=== PATIENT | male | born 1960 | race Caucasian/White ===

== ENCOUNTER 2021-08-13 05:38 | Emergency (ER) | payer MEDICAID ==
[2021-08-13 05:38] VITALS: TEMP 97.7
[2021-08-13 06:05] LABS: BASO % 0.8 % (0.0-2.0); EOS # 0.1 K/mm3 (0.0-0.7); EOS % 1.7 % (0.0-4.0); GRAN # 1.3 K/mm3 (1.4-6.5); GRAN % 37.2 % (42.2-75.2); HEMATOCRIT 39.3 % (42.0-52.0); HEMOGLOBIN 13.2 g/dl (13.5-18.0); LYMPH # 1.5 K/mm3 (1.2-3.4); LYMPH % 41.5 % (20.0-51.0); MEAN CELL VOLUME 91 fl (80.0-100.0); MEAN CORPUSCULAR HEMOGLOBIN 31 pg (27-31); MEAN CORPUSCULAR HGB CONC 34 g/dl (33.0-37.0); MEAN PLATELET VOLUME 12.2 fl (7.4-10.4); MONO # 0.7 K/mm3 (0.1-0.6); MONO % 18.5 % (1.7-9.3); PLATELET COUNT 87 K/mm3 (130-400); REDCELL DISTRIBUTION WIDTH-CV 14.8 % (11.5-14.5)
[2021-08-13 06:12] LABS: ALBUMIN 3.8 gm/dL (3.5-5.0); BILIRUBIN,TOTAL 0.9 mg/dL (0.2-1.2); C-REACTIVE PROTEIN 0.19 mg/dL (0.00-0.50); CALCIUM 8.6 mg/dL (8.4-10.2); CREATININE, serum 0.63 mg/dL (0.72-1.25); MAGNESIUM 1.6 mg/dL (1.6-2.6); TOTAL PROTEIN 7.7 gm/dL (6.2-8.1)
[2021-08-13 06:18] LABS: TROPONIN-I 0.01 ng/mL (0.00-0.033)
[2021-08-13 07:00] LABS: COLLECTION METHOD CLEAN CATCH
[2021-08-13 07:06] LABS: PH 7 (5-8); SQUAMOUS EPITHELIAL None Seen /hpf (0-10); URINE APPEARANCE Clear (CLEAR/HAZY); URINE BACTERIA None Seen /hpf (NONE SEEN); URINE BILIRUBIN Negative (NEGATIVE); URINE BLOOD Negative (NEGATIVE); URINE COLOR Yellow (YELLOW); URINE GLUCOSE Negative (NEGATIVE); URINE KETONE Negative (NEGATIVE); URINE LEUKOCYTE ESTERASE Negative (NEGATIVE); URINE NITRATE Negative (NEGATIVE); URINE PROTEIN(semi-quant) Negative (NEGATIVE); URINE RBC None Seen /hpf (0-2); URINE UROBILINOGEN >=4.0 (NEGATIVE)
[2021-08-13 09:23] VITALS: BP 142/85; PULSE 64
== END 2021-08-13 10:04 | disposition home or self-care (01) ==
LOC: COL.ER 05:38
PROVIDERS: Emergency Medicine
DX: R10.11 Right upper quadrant pain (principal); Z90.49 Acquired absence of other specified parts of digestive tract
CPT/HCPCS: J7120; Q9967

== ENCOUNTER 2021-08-26 19:50 | Emergency (ER) | payer MEDICAID ==
[~2021-08-26] VITALS: Ht 170.2 cm; Wt 72.7 kg
[2021-08-26 19:51] VITALS: TEMP 97.7
[2021-08-26 20:53] LABS: BASO # 0.1 K/mm3 (0.0-0.2); BASO % 1.9 % (0.0-2.0); EOS # 0.1 K/mm3 (0.0-0.7); EOS % 1.9 % (0.0-4.0); GRAN # 1.7 K/mm3 (1.4-6.5); GRAN % 45.5 % (42.2-75.2); HEMATOCRIT 39.6 % (42.0-52.0); HEMOGLOBIN 13.1 g/dl (13.5-18.0); LYMPH # 1.4 K/mm3 (1.2-3.4); LYMPH % 37.5 % (20.0-51.0); MEAN CELL VOLUME 91 fl (80.0-100.0); MEAN CORPUSCULAR HEMOGLOBIN 30 pg (27-31); MEAN CORPUSCULAR HGB CONC 33 g/dl (33.0-37.0); MEAN PLATELET VOLUME 12.5 fl (7.4-10.4); MONO # 0.5 K/mm3 (0.1-0.6); MONO % 12.9 % (1.7-9.3); PLATELET COUNT 72 K/mm3 (130-400); RED BLOOD COUNT 4.37 M/mm3 (4.20-5.60); REDCELL DISTRIBUTION WIDTH-CV 14.6 % (11.5-14.5)
[2021-08-26 21:06] LABS: INR 1.2 (0.8-3.0); PROTHROMBIN TIME 12.9 SECONDS (9.7-12.8)
[2021-08-26 21:12] LABS: ALBUMIN 3.8 gm/dL (3.5-5.0); BILIRUBIN,TOTAL 0.9 mg/dL (0.2-1.2); CALCIUM 8.8 mg/dL (8.4-10.2); CREATININE, serum 0.69 mg/dL (0.72-1.25); POTASSIUM 3.5 mmol/L (3.5-4.5); TOTAL PROTEIN 7.8 gm/dL (6.2-8.1)
[2021-08-26 22:30] VITALS: BP 107/71; PULSE 62
== END 2021-08-26 23:15 | disposition left against medical advice (07) ==
LOC: COL.ER 19:50
PROVIDERS: Physician Assistant
DX: S09.90XA Unspecified injury of head, initial encounter (principal); F10.129 Alcohol abuse with intoxication, unspecified; M25.512 Pain in left shoulder; Z98.890 Other specified postprocedural states; Y90.8 Blood alcohol level of 240 mg/100 ml or more; Y04.8XXA Assault by other bodily force, initial encounter
CPT/HCPCS: J7030

== ENCOUNTER 2021-09-12 16:30 | Inpatient (IN) | payer MEDICAID ==
[~2021-09-12] VITALS: Ht 175.3 cm; Wt 72.6 kg
[2021-09-12 17:50] LABS: HEMOGLOBIN 13.9 g/dl (13.5-18.0); MEAN CELL VOLUME 89 fl (80.0-100.0); MEAN CORPUSCULAR HEMOGLOBIN 30 pg (27-31); MEAN CORPUSCULAR HGB CONC 33 g/dl (33.0-37.0); PLATELET COUNT 94 K/mm3 (130-400); RED BLOOD COUNT 4.71 M/mm3 (4.20-5.60); REDCELL DISTRIBUTION WIDTH-CV 15.5 % (11.5-14.5)
[2021-09-12] MEDS ORDERED: MULTI-VITAMIN W1 TA1 PO (18:04)
[2021-09-12] MEDS ORDERED: FLOMAX 0.40.4 MG/CAP PO (18:04)
[2021-09-12 18:05] LABS: ALANINE AMINOTRANSFERASE 232 U/L (0-55); ALBUMIN 3.8 gm/dL (3.5-5.0); ALCOHOL(ethanol),MEDICAL 134 mg/dL (0-10); ALKALINE PHOSPHATASE 216 U/L (40-150); ANION GAP 14 mmol/L (7-16); AST,SGOT 432 U/L (5-34); BILIRUBIN,TOTAL 1.2 mg/dL (0.2-1.2); BLOOD UREA NITROGEN 7 mg/dL (8-26); CALCIUM 8.7 mg/dL (8.4-10.2); CARBON DIOXIDE 23 mmol/L (22-29); CHLORIDE 102 mmol/L (98-107); CREATININE, serum 0.63 mg/dL (0.72-1.25); GLUCOSE 71 mg/dL (70-99); POTASSIUM 3.8 mmol/L (3.5-4.5); SODIUM 139 mmol/L (136-145); TOTAL PROTEIN 8.5 gm/dL (6.2-8.1)
[2021-09-12] MEDS ORDERED: CRESTOR40 MG PO (18:06)
[2021-09-12] MEDS ORDERED: NEURONTIN300 MG/CAP PO (18:07)
[2021-09-12] MEDS ORDERED: ZOLOFT 25MG25 MG PO (18:07)
[2021-09-12] MEDS ORDERED: CYMBALTA 30MG30 MG PO (18:08)
[2021-09-12] MEDS ORDERED: NORVASC 5MG5 MG/TAB PO (18:08)
[2021-09-12] MEDS ORDERED: FOLIC ACID 11 MG/TA1 PO (18:09)
[2021-09-12] MEDS ORDERED: EUTHYROX50 MCG PO (18:10)
[2021-09-12 18:12] LABS: TROPONIN-I < 0.010 ng/mL (0.00-0.033)
[2021-09-12 18:41] LABS: BAND 11 % (0-10); EOSINOPHIL 3 % (0-4); LYMPHOCYTE 27 % (20.0-51.0); NEUTROPHILS 43 % (42.0-75.2); PLATELET ESTIMATE DECREASED (NORMAL)
[2021-09-12 19:09] LABS: TRICYCLIC ANTIDEPRESS URINE NEGATIVE
[2021-09-12 20:30] LABS: INR 1.1 (0.8-3.0); PROTHROMBIN TIME 12.4 SECONDS (9.7-12.8)
[2021-09-12 20:32] LABS: PARTIAL THROMBOPLASTIN TIME 43.6 SECONDS (26.0-37.0)
[2021-09-12 20:48] VITALS: BP 123/72; PULSE 61
[2021-09-12 23:16] LABS: COLLECTION METHOD CLEAN CATCH
[2021-09-12 23:23] LABS: PH 8 (5-8); SQUAMOUS EPITHELIAL 0-2 /hpf (0-10); URINE APPEARANCE Clear (CLEAR/HAZY); URINE BACTERIA None Seen /hpf (NONE SEEN); URINE BILIRUBIN Negative (NEGATIVE); URINE BLOOD Negative (NEGATIVE); URINE COLOR Yellow (YELLOW); URINE GLUCOSE Negative (NEGATIVE); URINE KETONE Negative (NEGATIVE); URINE LEUKOCYTE ESTERASE Negative (NEGATIVE); URINE NITRATE Negative (NEGATIVE); URINE PROTEIN(semi-quant) Negative (NEGATIVE); URINE RBC None Seen /hpf (0-2); URINE UROBILINOGEN >=4.0 (NEGATIVE)
[2021-09-13] VITALS (7 sets, daily range): BP systolic 132–163; BP diastolic 69–88; PULSE 59–78; TEMP 97.5–98.4
--- NOTE | 2021-09-13 00:25 | NUR ---
Received report from ED. Patient here for alcohol detox. Patient alert and oriented. VSS. Unable to perform part of intake. Patient was given ativan in ED and upon arrival became drowsy. Information received from patient was intermittent. Patient physical exam performed. Started fluids and will continue to monitor.
--- NOTE | 2021-09-13 02:03 | NUR ---
Patient CIWA scored 6, administered ativan. Will continue to monitor.
[2021-09-13 05:16] LABS: BASO # 0.1 K/mm3 (0.0-0.2); BASO % 1.4 % (0.0-2.0); EOS # 0.1 K/mm3 (0.0-0.7); EOS % 3.1 % (0.0-4.0); LYMPH # 0.8 K/mm3 (1.2-3.4); LYMPH % 22.3 % (20.0-51.0); MEAN CELL VOLUME 91 fl (80.0-100.0); MEAN CORPUSCULAR HEMOGLOBIN 30 pg (27-31); MEAN CORPUSCULAR HGB CONC 33 g/dl (33.0-37.0); MONO # 0.6 K/mm3 (0.1-0.6); MONO % 17.2 % (1.7-9.3); PLATELET COUNT 80 K/mm3 (130-400); RED BLOOD COUNT 4.29 M/mm3 (4.20-5.60); REDCELL DISTRIBUTION WIDTH-CV 15.4 % (11.5-14.5)
[2021-09-13 05:34] LABS: ALBUMIN 3.2 gm/dL (3.5-5.0); BILIRUBIN,TOTAL 1.4 mg/dL (0.2-1.2); CREATININE, serum 0.68 mg/dL (0.72-1.25); MAGNESIUM 1.6 mg/dL (1.6-2.6); POTASSIUM 3.6 mmol/L (3.5-4.5); TOTAL PROTEIN 7.2 gm/dL (6.2-8.1)
--- NOTE | 2021-09-13 06:11 | NUR ---
Patient had an uneventful night. Patient was restless throughout the night with intermittent sleep. Patient states that he "feels rough" and was given ativan once. Patient has tremors of the hands and some insomnia. VSS. Patient has requested snacks and has drank water throughout the shift. Patient has been pleasant throughout shift.
[2021-09-13] MEDS ORDERED: NORVASC 5MG5 MG/TAB PO (08:48)
--- NOTE | 2021-09-13 08:53 | NUR ---
Pt. resting in bed. He reports chronic BLE pain. Neurontin is usually helpful. Hospitalist PA notified that some meds have not been addressed yet on home med list. Pt. otherwise denies nausea. He denies further needs at this time. Call light is within his reach
--- NOTE | 2021-09-13 09:16 | NUR ---
Initial visit; Patient thanked Paving Bed Maker for looking in on him and offering prayer for his addiction to alcohol. Patient is requestin help from the DrSandro and hospital staff to get him into a program for alcoholics. He states he is "done with it," and requested prayer. Paving Bed Maker prayed for strength for Juan to look to God instead of alcohol when he needs help. Paving Bed Maker will keep him in her prayers.
--- NOTE | 2021-09-13 11:52 | NUR ---
Pt. resting in bed. He arouses easily from sleep. SCDs are on to BLE. Patient reports that his legs still hurt, but the pain has decreased since this morning. He denies further needs at this time. Call light is within his reach
--- NOTE | 2021-09-13 13:39 | NUR ---
SWAPNIL met with the patient to discuss discharge plan. The patient has been staying at the [address] in [place] for about 2 1/2 months now. He states that he was living with his aunt, Mervat Stiles (ph#[phone]), and his cousins in [place]; but him and his cousins do not get along, so he moved out. He reports independence with ADLs and does not have any DME. The patient's PCP is Dr. Maco Siegel in [place] and he receives his medications from [facility]. He reports no difficulties obtaining his meds. He states that he does not have a vehicle and walks to where he needs to go. The patient does not have a DPOA-HC. He states that he is not and has six children: Naman, Olu, Darrell, Juan, Adeel, and Anju. SWAPNIL informed him that his children would be his legal next of kin. The patient verbalized understanding and states that he does not keep in touch with them. He would want his brother, David Morrison (ph#[phone], as his person to make healthcare decisions for him. The patient was interested in completing a DPOA-HC while here. SWAPNIL provided the form. The patient designated his brother, David. He designated his aunt, Mervat Stiles, as the alternate. SWAPNIL and KARL Foy, witnessed the patient's signature. SWAPNIL provided the patient with the original and some copies. The patient was admitted to the hospital for alcohol detox. SWAPNIL addressed the patient's alcohol use. The patient states that he had been sober for a long time, but then his sister and he has been drinking since then. The patient reports that he has been to an inpatient alcohol treatment program in the past, but cannot recall which facility he went to. The patient would be interested in inpatient alcohol treatment again. The patient has Medicaid [facility]. Facilities typically require an Alchol and Drug Assessment from [facility] for inpatient treatment, if the patient has Medicaid or is self pay. SWAPNIL informed the patient of this and provided him with [facility] phone number. SWAPNIL assisted the patient with calling [facility]. [facility] did not answer and it went to their voicemail. The patient left a voicemail with his name and number. SWAPNIL informed the patient that if [facility] is unable to screen him by the time he discharges and placement is not found, then he would have to proceed with the screening process after he leaves here. The patient verbalized understanding and states that he would then plan on returning back to the [address] upon discharge. He states that the geochemical manager from the [facility] brought him into the hospital and states that he is welcomed back. The patient will likely need transport back to the mot, if he returns back there. SWAPNIL contacted [facility] and [facility]za in [place]. They do not take the patient's insurance. SWAPNIL contacted and left a voicemail for [facility] in [place]. Monroe Garza in [place] reports that they take Medicaid [facility], but cannot take the patient until he has had the Alcohol and Drug Assessment. SWAPNIL contacted Gin at [facility] in [place]. Gin states that they do not always need the assessment. She states that they do have a bed available today and tomorrow. SWAPNIL faxed the patient's information to [facility]. SWAPNIL attempted to contact [facility] in [place]. SWAPNIL left her a voicemail and faxed over the referral. Awaiting screens. *Discharge plan: Inpatient Alcohol Treatment if one accepts with his insurance, otherwise the patient will return back to the [address]*
--- NOTE | 2021-09-13 14:50 | NUR ---
Pt. resting supine in bed. He arouses easily from sleep. He reports continued bilat. leg pain. Gabapentin administered as ordered. Pt. encouraged to drink PO fluids. He denies further needs at this time. Call light is within his reach
--- NOTE | 2021-09-13 15:30 | NUR ---
SWAPNIL contacted Gin at [facility] in [place] to follow up on the referral. Gin reports that she has not had a chance to look over the referral yet. She states that the rn social services on tomorrow can contact them tomorrow morning to follow up on if they can take. If so, they would want to know what time the patient can be at their facility. SWAPNIL met with the patient to update. The patient is open to [facility] in [place]. He states that he can check with the manager recruitment at [facility] about transporting him to the facility. If not, the patient can utilize his transportation services through his Medicaid. The patient also contacted [facility] while SWAPNIL was in the room. The nurse receptionist informed him that they could assist the patient with getting a Drug and Alcohol screen. He would just need to contact their main line and ask to schedule at [facility]. SWAPNIL attempted to contact admissions with [facility]. SWAPNIL left them a voicmail with this SW's phone number and the patient's cell phone number. SWAPNIL updated the patient. The patient states that he will keep trying to get ahold of [facility].
--- NOTE | 2021-09-13 15:46 | NUR ---
The patient got ahalthea of [facility] and notified his RN. SW entered the patient's room. The patient has a phone interview with Daniela Chu with [facility] for the assessment on Thursday, 09/16, at 1300. The patient verbalized understanding of this appointment and how it will assist him with placement and treatment.
--- NOTE | 2021-09-13 18:46 | NUR ---
Pt transferred to room 354 per administration. Pt. is currently awake; eating dinner. He denies pain at this time. He denies nausea. Call light is within his reach. He denies further needs at this time
[2021-09-14] VITALS (353 sets, daily range): BP systolic 111–148; BP diastolic 70–85; PULSE 50–74; TEMP 97.4–98.8; O2SAT 76–100
--- NOTE | 2021-09-14 02:38 | NUR ---
Received report from day shift. Patient here for ETOH. VSS. Patient complains of coughing up green mucus. Patient requesting sleep aid. Assessment performed. PM meds administered. Hospitalist ordered albuterol, patient stated he uses that inhaler at home. CIWA scores are fluctuating between 3-6. Patient states that he is waiting to into an inpatient rehab facility. Patient has an appt Thursday via phone to begin the process.
[2021-09-14 06:21] LABS: BASO % 0.9 % (0.0-2.0); EOS # 0.1 K/mm3 (0.0-0.7); EOS % 2.1 % (0.0-4.0); GRAN # 2.6 K/mm3 (1.4-6.5); GRAN % 60.5 % (42.2-75.2); HEMATOCRIT 38.6 % (42.0-52.0); HEMOGLOBIN 12.5 g/dl (13.5-18.0); LYMPH # 0.9 K/mm3 (1.2-3.4); LYMPH % 21.2 % (20.0-51.0); MEAN CELL VOLUME 92 fl (80.0-100.0); MEAN CORPUSCULAR HEMOGLOBIN 30 pg (27-31); MEAN CORPUSCULAR HGB CONC 32 g/dl (33.0-37.0); MEAN PLATELET VOLUME 13.2 fl (7.4-10.4); MONO # 0.6 K/mm3 (0.1-0.6); MONO % 15.1 % (1.7-9.3); PLATELET COUNT 71 K/mm3 (130-400); RED BLOOD COUNT 4.22 M/mm3 (4.20-5.60); REDCELL DISTRIBUTION WIDTH-CV 15.2 % (11.5-14.5)
[2021-09-14 06:30] LABS: CALCIUM 8.5 mg/dL (8.4-10.2); CREATININE, serum 0.58 mg/dL (0.72-1.25); MAGNESIUM 1.6 mg/dL (1.6-2.6); POTASSIUM 3.8 mmol/L (3.5-4.5)
--- NOTE | 2021-09-14 07:47 | NUR ---
Patient sitting up in bed working on his breakfast tray. He is alert & oriented. Reports feeling better this am. He has a good appetite & is in a plesant mood. Only complaint is of wanting a cigeratte. Will continue to monitor closely.
--- NOTE | 2021-09-14 08:22 | NUR ---
Patient become irritated & aggitated quickly. wanting to leave. wanting a cigerette & very upset. smoking policy reviewed & ativan per detox scale given
--- NOTE | 2021-09-14 08:57 | NUR ---
PATIENT CONTINEUS TO BE RESTLESS AND AGGITATED. UP TO CHAIR. [facility] FALL RISK PROTOCOL FOLLOWED.
--- NOTE | 2021-09-14 09:37 | NUR ---
Patient continues to be aggitated irritated. Wanting to smoke. Patient by elevators. trying to leave, I called hospitalist & made them aware & malt house kiln operator. Patient back to room via wheelchair with assist from Ryan in PT. Detox score 11, 2 mg ativan given, approval from Aruna Lamas to be given early due to patient aggitations. Patient was cursing at staff, I offered AMA paperwork, he reports he does not want to leave he just wants to smoke. Resting in bed, high fall risk protocol
--- NOTE | 2021-09-14 14:45 | NUR ---
Patient restless, he has been up in chair. He was assisted in the bathroom, he was incontinent of stool, pericares given. Ativan per detox scale. Patient worried about his wallet & credit cards. Paraoid someone will take them. They are at bedside. Patient teacher hearing impaired was taken for patient safety. Emt B currently walking patient in the halls.
--- NOTE | 2021-09-14 15:44 | NUR ---
Patient not listening to staff again review patient & staff safety. Patient threatening to throw things and break them. I did not feel that he was safe to shave independently & that upset patient. Patient having significant tremers & sweating. Patient score elevated on detox scale, ativan per orders. Patient back in bed with alarms on.
--- NOTE | 2021-09-14 16:21 | NUR ---
Patient getting dressed. Ready to leave. Irritated and aggitated. Ativan did not seem to calm him. He is high fall risk. All protocol followed. But staff saftey also important. Unable to get safety belt on patient safely. Call Aruna Lamas to let her know of patient status
--- NOTE | 2021-09-14 16:35 | NUR ---
Multiple staff members trying to orientate & keep patient safe. enrike has seen patient. Now dose of ativan given. Patient with 3 assist to get in wheel chair. Ativan given. Patient swinging & cursing at staff. supervisor bottle house cleaners assisting with cares. She helped make phone calls to security & Icu charge nurse.
--- NOTE | 2021-09-14 16:49 | NUR ---
Pt arrived to ICU from Medical floor via wheelchair. Pt intermittently aggitated and cooperative. Pt demanding to be taken outside to smoke - pt re-educated on hospital smoking policy - pt has no interest. Pt placed in bed and hooked up to monitors. Call light in reach, bed alarm on
--- NOTE | 2021-09-14 17:11 | NUR ---
Patient to Icu 8. Zane to resume cares & start drip.
--- NOTE | 2021-09-14 17:46 | NUR ---
Pt attempting to climb out of bed stating "Im going out for a smoke break", pt also mumbling incoherently. When pt encouraged to get fully back in bed he became aggitated, screaming and throwing punches at me. De-escalation techniques unsuccessful. MD Teresa notified by SADI Giron who is in room assisting. MD Teresa in room at 1750 MD Teresa ordered 2 additional doses of 2mg Ativan and increased Precedex gtt max dosage in order to keep pt safe. 1814: pt agreeable to being repositioned, pt stood up with one assist, walked to head of bed and tucked in, warm blankets provided. 183: pt alseep, drowsy, wakes easy to voice. HR:58 - will continue to monitor closely for bradycardia effects from Precedex. MD Teresa updated
--- NOTE | 2021-09-14 19:00 | NUR ---
Received report from SADI Degroot.
[2021-09-15] VITALS (1061 sets, daily range): BP systolic 96–156; BP diastolic 70–92; PULSE 42–51; TEMP 96.8–97.8; O2SAT 62–100
[2021-09-15 04:46] LABS: BASO % 1.1 % (0.0-2.0); EOS # 0.2 K/mm3 (0.0-0.7); EOS % 4.7 % (0.0-4.0); GRAN # 2.2 K/mm3 (1.4-6.5); GRAN % 61.1 % (42.2-75.2); HEMATOCRIT 37.8 % (42.0-52.0); HEMOGLOBIN 12.2 g/dl (13.5-18.0); LYMPH # 0.7 K/mm3 (1.2-3.4); MEAN CELL VOLUME 91 fl (80.0-100.0); MEAN CORPUSCULAR HEMOGLOBIN 30 pg (27-31); MEAN CORPUSCULAR HGB CONC 32 g/dl (33.0-37.0); MEAN PLATELET VOLUME 12.8 fl (7.4-10.4); MONO # 0.5 K/mm3 (0.1-0.6); MONO % 13.8 % (1.7-9.3); PLATELET COUNT 79 K/mm3 (130-400); RED BLOOD COUNT 4.14 M/mm3 (4.20-5.60)
[2021-09-15 05:04] LABS: ALBUMIN 3.2 gm/dL (3.5-5.0); BILIRUBIN,TOTAL 1.4 mg/dL (0.2-1.2); CALCIUM 8.4 mg/dL (8.4-10.2); CREATININE, serum 0.61 mg/dL (0.72-1.25); MAGNESIUM 1.7 mg/dL (1.6-2.6); POTASSIUM 3.9 mmol/L (3.5-4.5); TOTAL PROTEIN 7.2 gm/dL (6.2-8.1)
--- NOTE | 2021-09-15 06:04 | NUR ---
Patient more alert beginning around 0400. Patient easily redirected at that time. Patient began waking more frequently, requesting something to eat and drink. Patient tolerated ice chips and water well; applesauce and cereal provided. However, patient then became more demanding and began cursing loudly at staff. Precedex titrated according to orders and 2mg IV ativan administered with no effect. Patient then began attempting to climb out of bed despite three staff members attempting redirection. Patient continued to curse staff and demand to be taken home. Legih, hospitalist, notified of behaviors at 0549; she arrived at bedside immediately. Orders received to administer an additional 2mg IV ativan. Patient continued to argue with and curse staff and attempt to get out of bed. Orders then received for 4mg IV haldol. Patient soon became drowsy and was redirected to lay down. He is currently resting quietly in bed with eyes closed. Vitals within normal limits. All alarms on, bed in lowest position.
--- NOTE | 2021-09-15 07:30 | NUR ---
Patient is laying in bed asleep this morning. Patient grimaces when this RN tries to wake him. No commands are followed. Will begin to titrate down on precedex slowly. VSS. Lines and drips verified. Call light in reach.
--- NOTE | 2021-09-15 15:22 | NUR ---
Pt wakes to name. PT asks what happened to him. Pt reoriented and states his bday. PT takes sips of water and falls quickly back to sleep.
--- NOTE | 2021-09-15 17:00 | NUR ---
PT AWAKE. ATE SANDWICH AND GRAPES. DRANK WATER. COMPLAINED OF "BAD PAIN". MEDICATION GIVEN PER EMAR. PATIENT IS AWARE TO SELF. IS ABLE TO RECITE .
--- NOTE | 2021-09-15 19:15 | NUR ---
Received report from SADI Valencia.
--- NOTE | 2021-09-15 19:30 | NUR ---
Patient resting quietly in bed with eyes closed. He arouses easily to speech and follows verbal commands, however, conversation is slightly clouded and confused. Vitals within normal limits. He denies any pain at this time.
[2021-09-16] VITALS (704 sets, daily range): BP systolic 101–136; BP diastolic 72–667; PULSE 55–77; TEMP 97.4–99; O2SAT 68–100
[2021-09-16 05:26] LABS: BASO % 0.7 % (0.0-2.0); EOS # 0.1 K/mm3 (0.0-0.7); EOS % 2.5 % (0.0-4.0); GRAN # 3.6 K/mm3 (1.4-6.5); GRAN % 64.1 % (42.2-75.2); HEMATOCRIT 39.4 % (42.0-52.0); HEMOGLOBIN 12.6 g/dl (13.5-18.0); MEAN CELL VOLUME 93 fl (80.0-100.0); MEAN CORPUSCULAR HEMOGLOBIN 30 pg (27-31); MEAN CORPUSCULAR HGB CONC 32 g/dl (33.0-37.0); MONO # 0.8 K/mm3 (0.1-0.6); MONO % 14.3 % (1.7-9.3); PLATELET COUNT 88 K/mm3 (130-400); RED BLOOD COUNT 4.24 M/mm3 (4.20-5.60); REDCELL DISTRIBUTION WIDTH-CV 15.4 % (11.5-14.5)
[2021-09-16 05:37] LABS: CALCIUM 8.6 mg/dL (8.4-10.2); CREATININE, serum 0.68 mg/dL (0.72-1.25); MAGNESIUM 1.6 mg/dL (1.6-2.6); POTASSIUM 4.1 mmol/L (3.5-4.5)
--- NOTE | 2021-09-16 13:00 | NUR ---
PATIENT RESTING IN BED, QUIET AND COOPERATIVE AT THIS TIME. STATES INTENTION TO ENTER INPATIENT REHABILITATION CENTER TO STOP DRINKING ALCOHOL. PATIENT IS TEARFUL AND DISCUSSES HOW HIS BODY HAS CHANGED IN RECENT YEARS. PATIENT REMINISCES ABOUT HIS FATHER AND HOW HIS BODY BEGAN TO DETERIORATE IN LATER YEARS.
--- NOTE | 2021-09-16 19:30 | NUR ---
Received report from SADI Rene, and SADI Ni.
--- NOTE | 2021-09-16 20:00 | NUR ---
Patient resting quietly in bed. He is alert and oriented, all vitals within normal limits. He reports left foot/ankle pain rated 7/10. PRN medication administered. Snack provided. No further needs noted. Bed in lowest position, all alarms on, and call light within reach.
--- NOTE | 2021-09-16 21:55 | NUR ---
Patient transferred via wheelchair to medical room 312. Contact made with receiving nurse, Ector.
--- NOTE | 2021-09-16 22:58 | NUR ---
PT TRANSFERRED TO MEDICAL FLOOR FROM ICU TO BED 312, PT ABLE TO AMBULATE TO BED SBA,PT A/0X4, SYSTOLIC HYPERTENSIVE, MILD TREMORS NOTED, 02 ROOM AIR, AFEBRILE. NICOTINE PATCH ON L ARM. IV IN RFA. MED REC COMPLETE. ASSESMENT COMPLETE. POC D/W PT. PT ORIENTED TO FLOOR. ALL NEEDS MET THUS FAR. CALL LIGHT WITHIN REACH.
[2021-09-17 03:24] VITALS: BP 151/73; PULSE 67; TEMP 98.5
--- NOTE | 2021-09-17 05:37 | NUR ---
PT HAD UNEVENTFUL NIGHT THIS SHIFT. CIWA SCORES REMAIN 2-3. PT PLEASANT AND COOPERATIVE. ALL NEEDS MET THIS SHIFT. CALL LIGHT WITHIN REACH.
[2021-09-17 06:06] VITALS: BP 134/82; PULSE 68; TEMP 98.5
[2021-09-17 06:32] LABS: BASO # 0.1 K/mm3 (0.0-0.2); BASO % 1.2 % (0.0-2.0); EOS # 0.1 K/mm3 (0.0-0.7); GRAN # 3.4 K/mm3 (1.4-6.5); GRAN % 57.2 % (42.2-75.2); HEMOGLOBIN 13.5 g/dl (13.5-18.0); LYMPH # 1.4 K/mm3 (1.2-3.4); MEAN CELL VOLUME 91 fl (80.0-100.0); MEAN CORPUSCULAR HEMOGLOBIN 29 pg (27-31); MEAN CORPUSCULAR HGB CONC 32 g/dl (33.0-37.0); MEAN PLATELET VOLUME 12.6 fl (7.4-10.4); MONO % 17.3 % (1.7-9.3); PLATELET COUNT 120 K/mm3 (130-400); RED BLOOD COUNT 4.61 M/mm3 (4.20-5.60); REDCELL DISTRIBUTION WIDTH-CV 15.1 % (11.5-14.5)
[2021-09-17 06:51] LABS: CALCIUM 9.1 mg/dL (8.4-10.2); CREATININE, serum 0.72 mg/dL (0.72-1.25); MAGNESIUM 1.6 mg/dL (1.6-2.6); POTASSIUM 3.8 mmol/L (3.5-4.5)
[2021-09-17 08:15] VITALS: BP 119/70; PULSE 60; TEMP 98.1
--- NOTE | 2021-09-17 09:31 | NUR ---
PT SITTING UP IN BED. MORNING MEDICATIONS GIVEN. SHIFT ASSESSMENT COMPLETED. PT HAS NOTICABLE TREMORS TO HANDS AND ARMS AND COMPLAINS OF FEELING OF HAND AND STOMACH CRAMPING. APPEARS ANXIOUS AND JITTERY, CIWA SCORE IS 4, ADIVAN GIVEN PER eMAR. DENIES ANY OTHER CONCERNS AT THIS TIME. UPDATED PT ON POC. WILL CONTINUE TO MONITOR.
[2021-09-17] MEDS ORDERED: MAG-OX 400400 MG/TAB PO (09:43)
[2021-09-17] MEDS ORDERED: THIAMINE 1100 MG/TAB PO (09:43)
[2021-09-17] MEDS ORDERED: ATIVAN 1MG T1 MG/TAB PO (09:44)
[2021-09-17] MEDS ORDERED: ROXICODONE 55 MG/TAB PO ×2 (09:44)
[2021-09-17] MEDS ORDERED: NICODERM C21 MG/PATC TD (09:45)
[2021-09-17 09:57] VITALS: BP 133/78; PULSE 62; TEMP 97.6
--- NOTE | 2021-09-17 10:16 | NUR ---
Follow-up visit; Patient request to see Medication Technician before he is discharged. Medication Technician offered prayer and gave Juan a Bible at his request. Medication Technician prayed for a healthy mind, body and spirit as patient states he is going to return to his spiritual journey and surround himself with [employer] people and hopefully find a place where he can get back on the right track and stay alcohol free.
[2021-09-17 11:06] VITALS: BP 134/79; PULSE 56; TEMP 97.8
--- NOTE | 2021-09-17 12:52 | NUR ---
DISCHARGE INSTRUCTIONS GIVEN, ALL QUESTIIONS ANSWERED. C/D IV. TAXI VOUCHER GIVEN TO PATIENT. WILL ESCORT DOWNSTAIRS.
--- NOTE | 2021-09-17 13:22 | NUR ---
Pricing Strategist attended clinical rounds with the team and patient is ready to discharge today. Patient requested contact information for [facility]. SW provided a Drug and Alcohol resource sheet to patient and highlighted the [facility] number. SW also provided patient with contact information to Medicaid Transportation to schedule a ride to his follow up appointment. Discharge Plan: Home
== END 2021-09-17 13:02 | disposition home or self-care (01) | DRG 897 ==
LOC: COL.ER 16:30 → SURG 18:59 → ICU 18:59 → SURG 18:59 → MEDICAL 18:59 → ICU 09-14 16:37 → MEDICAL 09-16 22:10
PROVIDERS: Internal Medicine; Nurse Practitioner Family; Student in an Organized Health Care Education/Training Program; ADMIT Student in an Organized Health Care Education/Training Program
DX: F10.239 Alcohol dependence with withdrawal, unspecified (principal); F10.229 Alcohol dependence with intoxication, unspecified; F17.210 Nicotine dependence, cigarettes, uncomplicated; E03.9 Hypothyroidism, unspecified; I10 Essential (primary) hypertension; E78.5 Hyperlipidemia, unspecified; N40.0 Benign prostatic hyperplasia without lower urinary tract symptoms; K40.90 Unilateral inguinal hernia, without obstruction or gangrene, not specified as recurrent; E83.42 Hypomagnesemia; D69.6 Thrombocytopenia, unspecified; Z20.822 Contact with and (suspected) exposure to COVID-19; Z23 Encounter for immunization
CPT/HCPCS: OP; 99223-AI; 99232-AI; 99233-AI; 99239; G0378; J1630; J2060; J3411; J3475; J7030; Q9967

== ENCOUNTER 2021-09-20 12:17 | Inpatient (IN) | payer MEDICAID ==
[2021-09-20] VITALS (13 sets, daily range): BP systolic 100–129; BP diastolic 60–75; PULSE 55–100; TEMP 98.3–98.7
[~2021-09-20] VITALS: Ht 175.3 cm; Wt 71.9 kg
[~2021-09-20 12:17] MED LIST: ATIVAN 1MG T1 MG/TAB PO; CRESTOR40 MG PO; CYMBALTA 30MG30 MG PO; EUTHYROX50 MCG PO; FLOMAX 0.40.4 MG/CAP PO; FOLIC ACID 11 MG/TA1 PO; MAG-OX 400400 MG/TAB PO; MULTI-VITAMIN W1 TA1 PO; NEURONTIN300 MG/CAP PO; NICODERM C21 MG/PATC TD; NORVASC 5MG5 MG/TAB PO; ROXICODONE 55 MG/TAB PO; THIAMINE 1100 MG/TAB PO; ZOLOFT 25MG25 MG PO
[2021-09-20 12:44] LABS: HEMATOCRIT 39.1 % (42.0-52.0); HEMOGLOBIN 12.7 g/dl (13.5-18.0); MEAN CELL VOLUME 90 fl (80.0-100.0); MEAN CORPUSCULAR HEMOGLOBIN 29 pg (27-31); MEAN CORPUSCULAR HGB CONC 33 g/dl (33.0-37.0); MEAN PLATELET VOLUME 12.6 fl (7.4-10.4); PLATELET COUNT 195 K/mm3 (130-400); RED BLOOD COUNT 4.34 M/mm3 (4.20-5.60); REDCELL DISTRIBUTION WIDTH-CV 15.1 % (11.5-14.5)
[2021-09-20 12:52] LABS: INR 1.3 (0.8-3.0)
[2021-09-20 12:59] LABS: ALANINE AMINOTRANSFERASE 232 U/L (0-55); ALBUMIN 3.3 gm/dL (3.5-5.0); ALKALINE PHOSPHATASE 167 U/L (40-150); ANION GAP 15 mmol/L (7-16); AST,SGOT 235 U/L (5-34); BILIRUBIN,TOTAL 0.7 mg/dL (0.2-1.2); BLOOD UREA NITROGEN 11 mg/dL (8-26); CALCIUM 8.2 mg/dL (8.4-10.2); CARBON DIOXIDE 21 mmol/L (22-29); CHLORIDE 105 mmol/L (98-107); CREATININE, serum 1.09 mg/dL (0.72-1.25); GLUCOSE 113 mg/dL (70-99); POTASSIUM 3.3 mmol/L (3.5-4.5); SODIUM 141 mmol/L (136-145); TOTAL PROTEIN 7.4 gm/dL (6.2-8.1)
[2021-09-20 13:05] LABS: TROPONIN-I < 0.010 ng/mL (0.00-0.033)
[2021-09-20 13:06] LABS: LYMPHOCYTE 22 % (20.0-51.0); NEUTROPHILS 55 % (42.0-75.2); PLATELET ESTIMATE NORMAL (NORMAL)
[2021-09-20] MEDS ORDERED: CYMBALTA 30MG30 MG PO (13:46)
[2021-09-20 13:48] LABS: TRICYCLIC ANTIDEPRESS URINE NEGATIVE
--- NOTE | 2021-09-20 14:26 | NUR ---
See merge for all assessment, intervention, medication, and vital sign times.
[2021-09-20 14:30] LABS: MAGNESIUM 1.5 mg/dL (1.6-2.6)
[2021-09-20 14:52] LABS: THYROID STIMULATING HORMONE 2.095 uIU/mL (0.350-4.940)
--- NOTE | 2021-09-20 21:36 | NUR ---
SAFEGUARD ON RIGHT FEMORAL SITE RELEASED BY 10CC, 15 CC OF AIR REMAINING, NO HARDENING AT SIGHT, CAPILLARY REFILL WNL, PT REPORTS 02/05, VSS, 02 ROOM AIR, PT DENIES PAPLITATIONS CHEST PAIN,N,V,D. THIS NURSE WILL CONTINUE TO MONITOR.
[2021-09-21] VITALS (11 sets, daily range): BP systolic 116–130; BP diastolic 57–71; PULSE 52–66; TEMP 98–98.6
--- NOTE | 2021-09-21 02:10 | NUR ---
FEMSTOP TAKEN OFF AT 2146, GAUZE AND TEGADERM PLACED ON. CAPILLARY REFILL WNL, NO HEMATOMA NOTED,VSS, PT CONTINUES TO REPORT GENERALIZED PAIN, MEDICATION ADMINISTERED ORDERED, HOB ELEVATED AT 30 DEGREES, PT INSTRUCTED TO CALL TO AMBULATE. BED ALARM ON.
[2021-09-21 05:18] LABS: ALBUMIN 2.8 gm/dL (3.5-5.0); CALCIUM 8.3 mg/dL (8.4-10.2); CREATININE, serum 0.67 mg/dL (0.72-1.25); PHOSPHOROUS 2.7 mg/dL (2.3-4.7); POTASSIUM 3.6 mmol/L (3.5-4.5)
--- NOTE | 2021-09-21 06:57 | NUR ---
PT RIGHT FEMORAL SITE DRESSING REMAINS C/D/I, VSS, 02 ROOM AIR, PT EAGER TO DC. PT REMAINS A/OX4, UNSTEADY GAIT. LR INFUSING TO LFA IV. ALL NEEDS MET THIS SHIFT.
[2021-09-21 07:55] LABS: BASO # 0.1 K/mm3 (0.0-0.2); EOS # 0.1 K/mm3 (0.0-0.7); GRAN # 1.9 K/mm3 (1.4-6.5); GRAN % 47.3 % (42.2-75.2); HEMATOCRIT 37.9 % (42.0-52.0); HEMOGLOBIN 12.4 g/dl (13.5-18.0); LYMPH # 1.1 K/mm3 (1.2-3.4); LYMPH % 27.6 % (20.0-51.0); MEAN CELL VOLUME 91 fl (80.0-100.0); MEAN CORPUSCULAR HEMOGLOBIN 30 pg (27-31); MEAN CORPUSCULAR HGB CONC 33 g/dl (33.0-37.0); MEAN PLATELET VOLUME 13.5 fl (7.4-10.4); MONO # 0.8 K/mm3 (0.1-0.6); MONO % 19.8 % (1.7-9.3); PLATELET COUNT 124 K/mm3 (130-400); RED BLOOD COUNT 4.18 M/mm3 (4.20-5.60); REDCELL DISTRIBUTION WIDTH-CV 15.6 % (11.5-14.5)
--- NOTE | 2021-09-21 09:59 | NUR ---
PT ASSESSED. NO COMPLAINTS OF PAIN OR DYSPNEA. NO SIGNS OR SYMPTOMS OF DISTRESS. PT ABLE TO EAT BREAKFAST AND TAKE MEDICATIONS SCHEDULED. NO OTHER CONCERNS AT THIS TIME. CALL LIGHT WITHIN REACH
--- NOTE | 2021-09-21 12:54 | NUR ---
Grain Cleaner offered prayer and support with patient.
--- NOTE | 2021-09-21 15:29 | NUR ---
muffle worker met with patient to discuss discharge plan. Patient reports that he is currently staying at the [facility] and that he is planning on returning there once medically ready.Patient recently discharged from this facility. He reports that he completed the [facility] screen and a therapist has him on a wait list for a 30-day inpatient rehab facility in [place]. States that Concepcion with [facility] has offered to let him lead a "sober seniors" program through the [facility] if he completes the treatment. Patient verbalizes his excitement about this opportunity. Patient verbalizes that he would like to call his brother Dakota. This SW assisted with the patient calling his brother. Contact made with [facility]. Spoke with [facility] who states that they are holding a room for the patient to return to once he is medially ready to do so. Discharge plan: [facility]
[2021-09-22 02:16] VITALS: BP 131/77; PULSE 57; TEMP 98.2
--- NOTE | 2021-09-22 02:17 | NUR ---
PT C/O PAIN CHEST PAIN, WHILE PT WAS SLEEPING HE REPORTS ABRUPT CHEST PAIN DESCRIBES PRESSURE 7/10. PT REPORTS HE FEELS DIZZY. EKG ORDERED STAT. RESPIRITORY CONTACTED. THIS NURSE WILL INFORM HOSPITALIST.
--- NOTE | 2021-09-22 02:35 | NUR ---
PT ADMINISTERED NITROGLYCERIN PER ORDER, 3 SL TAB'S 5MIN APART WITH MILD ALLEVIATION. PT REPORTS CHEST PRESSURE/PAIN NOW AT 4/10, EKG REPORT PENDING. THIS NURSE ACTIVELY MONITORING PT IN ROOM.
--- NOTE | 2021-09-22 02:55 | NUR ---
HOSPITALIST INFORMED; MORPHINE ADMINSITERED ORDERED, TRENDING TROPONINS.POST MORPHINE ADMINISTRATION PT FOUND ALLEVIATION. PT REPORTS MILD CHEST PRESSURE 2/10 AND STATES " I AM ABLE TO BREATHE BETTER". VSS. 02 REMAINS RA. PT FLAT, INSTRUCTED TO NOT EXERT HIMSELF. PT VISIBLE TO NURSES STATION. BED ALARM ON. CALL LIGHT WITHIN REACH.
[2021-09-22 05:46] LABS: BASO # 0.1 K/mm3 (0.0-0.2); BASO % 1.5 % (0.0-2.0); EOS # 0.1 K/mm3 (0.0-0.7); GRAN # 2.3 K/mm3 (1.4-6.5); GRAN % 56.8 % (42.2-75.2); HEMOGLOBIN 12.3 g/dl (13.5-18.0); LYMPH # 0.9 K/mm3 (1.2-3.4); LYMPH % 22.1 % (20.0-51.0); MEAN CELL VOLUME 90 fl (80.0-100.0); MEAN CORPUSCULAR HEMOGLOBIN 30 pg (27-31); MEAN CORPUSCULAR HGB CONC 33 g/dl (33.0-37.0); MEAN PLATELET VOLUME 12.2 fl (7.4-10.4); MONO # 0.7 K/mm3 (0.1-0.6); MONO % 17.3 % (1.7-9.3); PLATELET COUNT 100 K/mm3 (130-400); RED BLOOD COUNT 4.13 M/mm3 (4.20-5.60); REDCELL DISTRIBUTION WIDTH-CV 15.4 % (11.5-14.5)
[2021-09-22 06:05] LABS: ALBUMIN 2.9 gm/dL (3.5-5.0); CALCIUM 8.5 mg/dL (8.4-10.2); CREATININE, serum 0.6 mg/dL (0.72-1.25); MAGNESIUM 1.6 mg/dL (1.6-2.6); PHOSPHOROUS 3.5 mg/dL (2.3-4.7); POTASSIUM 3.8 mmol/L (3.5-4.5)
[2021-09-22 07:30] VITALS: BP 133/70; PULSE 56; TEMP 99
--- NOTE | 2021-09-22 09:29 | NUR ---
Scheduled medications given. Shift assessment performed. Patient not scoring on the CIWA scale. States that he has some chest soreness from where they shocked him, but denies any further pain or discomfort. Inguinal hernia noted. Neuro check WNL. Patient denies any chest pain, N/V/D, or further needs at this time. Call light in reach. Fall percautions in place. VSS. Patient A&O.
[2021-09-22 11:03] VITALS: BP 129/75; PULSE 58; TEMP 98.5
[2021-09-22 14:51] VITALS: BP 116/64; PULSE 52; TEMP 98.5
--- NOTE | 2021-09-22 19:28 | NUR ---
Patient has had an uneventful day. VSS. Patient A&O. Denies any pain, discomfort, SOA, or further needs at this time. Call light in reach. Neuro checks WNL.
[2021-09-22 20:14] VITALS: BP 113/63; PULSE 68; TEMP 98.6
--- NOTE | 2021-09-22 22:34 | NUR ---
PT ALERT AND ORIENTED THIS EVENING. CALM AND COOPERATIVE. COMPLAINS OF UPPER ADBOMINAL PAIN TO PALPATION AND CHEST PAIN ON THE SKIN. STATES IT IS "SORE FROM WHEN THEY SHOCKED ME". SHIFT ASSESSMENT PERFORMED. MEDICATIONS ADMINISTERED AND EDUCATION PROVIDED TO PT. VITAL SIGNS STABLE. Q4 NEURO CHECKS PERFORMED. PT HAS ADEQUATE INTAKE AND OUTPUT THIS EVENING. WILL CONTINUE TO MONITOR.
[2021-09-22 23:52] VITALS: BP 126/66; PULSE 51; TEMP 98.4
[2021-09-23 04:30] VITALS: BP 139/74; PULSE 48; TEMP 98
--- NOTE | 2021-09-23 04:54 | NUR ---
PT HAD UNEVENTFUL NIGHT. NO COMPLAINTS OF CHEST PAIN OR SOB THROUGHOUT THE NIGHT. ADEQUATE INTAKE AND OUTPUT. PT RESTING IN BED. NO SCORING ON THE CIWA. BED ALARM REMAINS ON AND BED IN LOCKED/LOW POSITION. PT REPORTS NO PAIN. VITAL SIGNS STABLE. WILL CONTINUE TO MONITOR. NO CONCERNS AT THIS TIME.
[2021-09-23 06:40] LABS: BASO # 0.1 K/mm3 (0.0-0.2); BASO % 2.2 % (0.0-2.0); EOS # 0.1 K/mm3 (0.0-0.7); EOS % 2.6 % (0.0-4.0); GRAN # 2.7 K/mm3 (1.4-6.5); GRAN % 58.2 % (42.2-75.2); HEMATOCRIT 37.9 % (42.0-52.0); HEMOGLOBIN 12.3 g/dl (13.5-18.0); LYMPH # 1.1 K/mm3 (1.2-3.4); LYMPH % 23.7 % (20.0-51.0); MEAN CELL VOLUME 92 fl (80.0-100.0); MEAN CORPUSCULAR HEMOGLOBIN 30 pg (27-31); MEAN CORPUSCULAR HGB CONC 33 g/dl (33.0-37.0); MEAN PLATELET VOLUME 13.1 fl (7.4-10.4); MONO # 0.6 K/mm3 (0.1-0.6); MONO % 12.9 % (1.7-9.3); PLATELET COUNT 106 K/mm3 (130-400); RED BLOOD COUNT 4.14 M/mm3 (4.20-5.60); REDCELL DISTRIBUTION WIDTH-CV 15.3 % (11.5-14.5)
[2021-09-23 07:04] LABS: CALCIUM 8.7 mg/dL (8.4-10.2); CREATININE, serum 0.65 mg/dL (0.72-1.25); MAGNESIUM 1.5 mg/dL (1.6-2.6); PHOSPHOROUS 3.7 mg/dL (2.3-4.7); POTASSIUM 3.8 mmol/L (3.5-4.5)
[2021-09-23 07:08] VITALS: BP 132/78; PULSE 47; TEMP 98
--- NOTE | 2021-09-23 11:14 | NUR ---
SWAPNIL met with the patient to review discharge plan and to inquire about the 30-day inpatient rehab facility. The patient states that the doctor is looking at discharge tomorrow now and he plans on returning back to [facility]. He states that he has been in contact with the top case assembler, Concepcion, there and has kept her updated. The patient states that he has been working with the [employer] screener and a bed should hopefully be opening up in a couple weeks now at [facility] for the 30-day inpatient treatment program. After the program, he plans on returning back to [facility]. He working with Concepcion on this. He had no concerns for SW. He states that he will just need a ride back to [facility] upon discharge.
[2021-09-23 14:16] VITALS: BP 134/72; PULSE 51; TEMP 97.7
[2021-09-23 15:07] VITALS: BP 121/65; PULSE 50; TEMP 97.9
--- NOTE | 2021-09-23 18:32 | NUR ---
Patient has had an ok day. Scheduled medications given. Shift assessment performed. Patient c/o of 3/10 sharp/aching pain in hips, but denies the need for interventions at this time. Echo completed. VSS. Patient A&O. Not scoring on CIWA. Patient denies any further pain, discomfort, SOA, or further needs at this time.
[2021-09-23 20:07] VITALS: BP 119/69; PULSE 50; TEMP 98.1
--- NOTE | 2021-09-23 20:15 | NUR ---
Initial shift assessment done- denies pain, has been up in the chair- now back to bed, will have the bed alarm on during the night--pt understands, denies pain at this time, in good spirits-talking about going back to [facility] tomorrow and then in about 2 weeks going to rehab in [place] and then back to the [facility] to help with a program with seniors--states he is excited to have something to look forward too,,,Tele on- taran at 55, did have SCD,s on and needs a break now-- states the doctor said it was ok to not use them since he going home tomorrow. not scoring per CIWA-
[2021-09-24 00:03] VITALS: BP 124/70; PULSE 47; TEMP 97.8
[2021-09-24 03:43] VITALS: BP 132/69; PULSE 50; TEMP 97.8
--- NOTE | 2021-09-24 05:24 | NUR ---
Quiet night- VSS, Did not score on CIWA protocol- did have some snacks during the night, no other requests.
[2021-09-24 06:51] LABS: CALCIUM 8.9 mg/dL (8.4-10.2); CREATININE, serum 0.69 mg/dL (0.72-1.25); MAGNESIUM 1.6 mg/dL (1.6-2.6); PHOSPHOROUS 3.7 mg/dL (2.3-4.7); POTASSIUM 3.8 mmol/L (3.5-4.5)
[2021-09-24 07:13] LABS: BASO # 0.1 K/mm3 (0.0-0.2); BASO % 2.1 % (0.0-2.0); EOS # 0.2 K/mm3 (0.0-0.7); GRAN # 3.6 K/mm3 (1.4-6.5); GRAN % 63.8 % (42.2-75.2); HEMATOCRIT 38.6 % (42.0-52.0); HEMOGLOBIN 12.9 g/dl (13.5-18.0); LYMPH # 1.2 K/mm3 (1.2-3.4); LYMPH % 20.3 % (20.0-51.0); MEAN CELL VOLUME 90 fl (80.0-100.0); MEAN CORPUSCULAR HEMOGLOBIN 30 pg (27-31); MEAN CORPUSCULAR HGB CONC 33 g/dl (33.0-37.0); MEAN PLATELET VOLUME 13.7 fl (7.4-10.4); MONO # 0.6 K/mm3 (0.1-0.6); MONO % 9.9 % (1.7-9.3); PLATELET COUNT 123 K/mm3 (130-400); REDCELL DISTRIBUTION WIDTH-CV 15.4 % (11.5-14.5)
[2021-09-24 07:44] VITALS: BP 125/82; PULSE 50; TEMP 97.5
[2021-09-24] MEDS ORDERED: TOPROL XL 50MG50 MG PO (08:24)
[2021-09-24] MEDS ORDERED: DUO-KAPS1 CAP PO (08:25)
[2021-09-24] MEDS ORDERED: THIAMINE 1100 MG/TAB PO (08:26)
[2021-09-24] MEDS ORDERED: PACERONE400 MG PO (08:27)
[2021-09-24] MEDS ORDERED: CORDARONE200 MG/TAB PO (08:28)
--- NOTE | 2021-09-24 11:26 | NUR ---
The patient is to discharge today, 09/24, back to the [facility]. SWAPNIL notified the [facility]dc. The patient also has new medications that were sent to his preferred pharmacy, [facility]. SWAPNIL informed the [facility]dc. The hr receptionist states that they can provide a bus pass to the patient for him to go to [facility] to cone picker his meds. SWAPNIL met with the patient and reviewed the above. The patient is in agreement to the plan. SWAPNIL provided the patient's RN with a taxi voucher to [facility]. No additional needs at this time.
[2021-09-24 11:56] VITALS: BP 138/68; PULSE 52; TEMP 98.2
--- NOTE | 2021-09-24 14:00 | NUR ---
Patient deemed fit for discharge. IV DC'd, catheter intact, no signs of phlebitis. Discharge education/instructions given. All questions anwered. VSS. Patient A&O. Denies the need for interventions for pain in hips. No scoring on CIWA. Patient ambulated from building escorted by [facility]. [facility] transported patient to [facility].
--- NOTE | 2021-09-24 14:00 | NUR ---
Patient inquired about location of wallet. No record of wallet ever being in the facility. Patient states, "I think I remember asking a friend to hold onto it before I left the correction."
== END 2021-09-24 14:00 | disposition home or self-care (01) | DRG 287 ==
LOC: COL.ER 12:17 → MEDICAL 16:00
PROVIDERS: Nurse Practitioner; Nurse Practitioner Family; Personal Emergency Response Attendant; ADMIT Internal Medicine
PROC: 4A023N7 Measurement of Cardiac Sampling and Pressure, Left Heart, Percutaneous Approach (ICD-10-PCS; principal; 2021-09-20)
PROC: B2111ZZ Fluoroscopy of Multiple Coronary Arteries using Low Osmolar Contrast (ICD-10-PCS; 2021-09-20)
DX: I47.2 Ventricular tachycardia (principal); F10.129 Alcohol abuse with intoxication, unspecified; I10 Essential (primary) hypertension; E78.5 Hyperlipidemia, unspecified; E03.9 Hypothyroidism, unspecified; N40.0 Benign prostatic hyperplasia without lower urinary tract symptoms; F17.210 Nicotine dependence, cigarettes, uncomplicated; E87.6 Hypokalemia; E83.42 Hypomagnesemia; K40.90 Unilateral inguinal hernia, without obstruction or gangrene, not specified as recurrent; F32.A Depression, unspecified; I44.0 Atrioventricular block, first degree; I45.10 Unspecified right bundle-branch block; Y90.5 Blood alcohol level of 100-119 mg/100 ml
CPT/HCPCS: 99223-AI; 99232-AI; 99233-AI; 99239; C1760; C1769; C1887; C1894; J0282; J2250; J2270; J3010; J3475; J7030; J7060; J7120

== ENCOUNTER 2022-03-03 16:29 | Emergency (ER) | payer MEDICAID ==
[~2022-03-03] VITALS: Ht 175.3 cm; Wt 81.8 kg
[~2022-03-03 16:29] MED LIST changes: +AMOXICILLIN 50500 MG PO; +CORDARONE200 MG/TAB PO; +DUO-KAPS1 CAP PO; +NORCO 325 MG-51 TAB PO; +PACERONE400 MG PO; +TOPROL XL 50MG50 MG PO
[2022-03-03 17:17] LABS: BASO % 1.1 % (0.0-2.0); EOS # 0.2 K/mm3 (0.0-0.7); EOS % 4.3 % (0.0-4.0); GRAN # 1.9 K/mm3 (1.4-6.5); GRAN % 51.1 % (42.2-75.2); HEMOGLOBIN 10.8 g/dl (13.5-18.0); LYMPH # 1.2 K/mm3 (1.2-3.4); LYMPH % 32.3 % (20.0-51.0); MEAN CELL VOLUME 95 fl (80.0-100.0); MEAN CORPUSCULAR HEMOGLOBIN 32 pg (27-31); MEAN CORPUSCULAR HGB CONC 34 g/dl (33.0-37.0); MEAN PLATELET VOLUME 13.4 fl (7.4-10.4); MONO # 0.4 K/mm3 (0.1-0.6); MONO % 10.9 % (1.7-9.3); PLATELET COUNT 88 K/mm3 (130-400); RED BLOOD COUNT 3.34 M/mm3 (4.20-5.60); REDCELL DISTRIBUTION WIDTH-CV 13.2 % (11.5-14.5)
[2022-03-03 17:23] LABS: HEMATOCRIT 31.7 % (42.0-52.0)
[2022-03-03 17:35] LABS: ALBUMIN 3.1 gm/dL (3.5-5.0); BILIRUBIN,TOTAL 0.6 mg/dL (0.2-1.2); CALCIUM 7.8 mg/dL (8.4-10.2); CREATININE, serum 0.62 mg/dL (0.72-1.25); POTASSIUM 3.9 mmol/L (3.5-4.5); TOTAL PROTEIN 6.7 gm/dL (6.2-8.1)
[2022-03-03 17:40] LABS: TROPONIN-I 0.014 ng/mL (0.00-0.033)
[2022-03-03 18:42] LABS: COLLECTION METHOD CLEAN CATCH
[2022-03-03 18:49] LABS: SQUAMOUS EPITHELIAL None Seen /hpf (0-10); URINE BACTERIA None Seen /hpf (NONE SEEN); URINE RBC 0-2 /hpf (0-2)
[2022-03-03 18:50] LABS: URINE APPEARANCE Clear (CLEAR/HAZY); URINE COLOR Yellow (YELLOW)
[2022-03-03 18:51] LABS: URINE GLUCOSE Negative (NEGATIVE); URINE KETONE Negative (NEGATIVE); URINE PROTEIN(semi-quant) Negative (NEGATIVE)
[2022-03-03 18:52] LABS: URINE BLOOD Negative (NEGATIVE); URINE NITRATE Negative (NEGATIVE)
[2022-03-03 19:03] LABS: TRICYCLIC ANTIDEPRESS URINE NEGATIVE
[2022-03-03] MEDS ORDERED: AMOXICILLIN 8751 TAB PO (19:17)
[2022-03-03 19:59] VITALS: BP 110/74; PULSE 65; TEMP 96.9
== END 2022-03-03 20:13 | disposition home or self-care (01) ==
LOC: COL.ER 16:29
PROVIDERS: Physician Assistant
DX: F10.129 Alcohol abuse with intoxication, unspecified (principal); J18.1 Lobar pneumonia, unspecified organism; M79.662 Pain in left lower leg; R10.84 Generalized abdominal pain; R79.1 Abnormal coagulation profile; Z90.49 Acquired absence of other specified parts of digestive tract; Y90.8 Blood alcohol level of 240 mg/100 ml or more; Z20.822 Contact with and (suspected) exposure to COVID-19
CPT/HCPCS: J7030; Q9967

== ENCOUNTER 2022-03-14 15:05 | Emergency (ER) | payer MEDICAID ==
[~2022-03-14] VITALS: Ht 175.3 cm; Wt 81.8 kg
[~2022-03-14 15:05] MED LIST changes: +AMOXICILLIN 8751 TAB PO
[2022-03-14 15:07] VITALS: TEMP 97.9
[2022-03-14 15:55] LABS: COLLECTION METHOD CLEAN CATCH
[2022-03-14 16:01] LABS: HEMOGLOBIN 11.1 g/dl (13.5-18.0); MEAN CELL VOLUME 95 fl (80.0-100.0); MEAN CORPUSCULAR HEMOGLOBIN 32 pg (27-31); MEAN CORPUSCULAR HGB CONC 34 g/dl (33.0-37.0); MEAN PLATELET VOLUME 12.2 fl (7.4-10.4); PLATELET COUNT 61 K/mm3 (130-400); RED BLOOD COUNT 3.43 M/mm3 (4.20-5.60); REDCELL DISTRIBUTION WIDTH-CV 14.5 % (11.5-14.5)
[2022-03-14 16:14] LABS: URINE APPEARANCE Clear (CLEAR/HAZY); URINE BLOOD Negative (NEGATIVE); URINE COLOR Amber (YELLOW); URINE GLUCOSE Negative (NEGATIVE); URINE KETONE Negative (NEGATIVE); URINE NITRATE Negative (NEGATIVE); URINE PROTEIN(semi-quant) Negative (NEGATIVE); URINE UROBILINOGEN >=8.0 E.U/dL (0.2-1.0)
[2022-03-14 16:17] LABS: ALBUMIN 3.3 gm/dL (3.5-5.0); BILIRUBIN,TOTAL 0.7 mg/dL (0.2-1.2); CALCIUM 8.5 mg/dL (8.4-10.2); CREATININE, serum 0.68 mg/dL (0.72-1.25); POTASSIUM 3.9 mmol/L (3.5-4.5); SQUAMOUS EPITHELIAL None Seen /hpf (0-10); TOTAL PROTEIN 7.2 gm/dL (6.2-8.1); URINE BACTERIA None Seen /hpf (NONE SEEN); URINE RBC 0-2 /hpf (0-2)
[2022-03-14 16:23] LABS: TROPONIN-I 0.01 ng/mL (0.00-0.033)
[2022-03-14 16:36] LABS: HEMATOCRIT 32.6 % (42.0-52.0)
[2022-03-14 17:41] VITALS: BP 155/48; PULSE 66
== END 2022-03-14 17:44 | disposition home or self-care (01) ==
LOC: COL.ER 15:05
PROVIDERS: Emergency Medicine
DX: D61.818 Other pancytopenia (principal); K40.90 Unilateral inguinal hernia, without obstruction or gangrene, not specified as recurrent; J18.9 Pneumonia, unspecified organism; R74.01 Elevation of levels of liver transaminase levels; Z20.822 Contact with and (suspected) exposure to COVID-19
CPT/HCPCS: J1885